=== PATIENT | female | born 1995 ===

== ENCOUNTER 2020-08-10 13:05 | Inpatient (IN) | payer SELFPAY ==
[2020-08-10 13:10] VITALS: BP 125/83; PULSE 79; RESP 18; TEMP 37; O2SAT 99; BMI 23.4
--- NOTE | 2020-08-10 13:15 | ECG_ITS ---
[facility] Test Date: 2020-08-10 Pat Name: Nika Jorge Department: Room: Gender: Female Shot Fireman: : 1995 Requested By: Garett Gerardo Order Number: [id number] Lawanda MD: Jay Davis M.D. Measurements Intervals [place] Rate: 89 P: 68 TX: 137 QRS: 81 QRSD: 84 T: 51 QT: 357 QTc: 435 Interpretive Statements SINUS RHYTHM No previous ECG available for comparison Electronically Signed On 08-11-2020 19:18:09 PRODUCTION CONTROL EXPEDITER by Jay Davis M.D. [id number]
[2020-08-10 13:19] VITALS: BP 125/83; PULSE 79; RESP 18; O2SAT 99
[2020-08-10] MEDS: OLANZapine 10 mg TABLET PO (13:42)
[2020-08-10 14:01] LABS: HCG Qualitative Urine. Negative (Negative)
[2020-08-10 14:08] LABS: Add Urine Microscopic? YES; Basophils # 0.1 10^3/uL (0.0-0.1); Basophils % 0.7 %; Bilirubin Urine Neg (Negative); Blood Urine 2+ (Negative); Eosinophils % 0.4 %; Glucose Urine UA Norm (Normal); Hematocrit 41.1 % (37.0-47.0); Hemoglobin 13.3 g/dL (11.5-15.3); Ketones Urine Negative (Negative); Leukocyte Esterase Urine Trace (Negative); Lymphocytes # 2.1 10^3/uL (0.8-4.8); Lymphocytes % 27.5 %; Mean Corpuscular HGB Conc 32.4 g/dL (30.0-36.0); Mean Corpuscular Hemoglobin 30.6 pg (28.0-34.0); Mean Corpuscular Volume 94.7 fL (81-99); Mean Platelet Volume 9.8 fL (7.4-10.4); Monocytes # 0.5 10^3/uL (0.2-0.9); Monocytes % 6.9 %; Neutrophils # 4.84 10^3/uL (1.8-7.7); Neutrophils % 63.5 %; Nitrate Urine Negative (Negative); Nucleated Red Blood Cells % 0 %; Platelet Count 377 10^3/cmm (130-400); Protein Urine Neg (Negative); Red Blood Count 4.34 10^6/uL (4.1-5.3); Red Cell Distribution Width 13.7 % (12.1-15.1); Urine Appearance Cloudy (CLEAR); Urine Color Yellow (Yellow); Urobilinogen Urine Norm (Negative); White Blood Count 7.6 10^3/uL (4.0-10.0); pH Urine 5 (5-7)
[2020-08-10 14:09] LABS: Amphetamines Screen Urine Negative (Negative); Barbiturates Screen Urine Negative (Negative); Benzodiazepines Screen Urine Negative (Negative); Cocaine Screen Urine Negative (Negative); Opiate Screen Urine Negative (Negative); PCP Screen Urine Negative (Negative); THC Screen Urine Negative (Negative)
[2020-08-10 14:20] LABS: WBC Urine >100 /hpf (0-5)
[2020-08-10 14:21] LABS: Add Urine Culture? No; Bacteria Urine 4+ /hpf; Squamous Epithelial Cell Urine 40-55 /hpf (0-5)
[2020-08-10 14:23] LABS: Alanine Aminotransferase 57 U/L (0-33); Alkaline Phosphatase 80 IU/L (35-105); Anion Gap 13.6 (5-19); Aspartate Amino Transferase 17 U/L (0-32); Blood Urea Nitrogen 13 mg/dL (6-20); Calcium 9.7 mg/dL (8.5-10.5); Carbon Dioxide 29 mmol/L (22-29); Chloride 101 mmol/L (98-107); Globulin 3.6 g/dL (1.3-4.6); Glomerular Filtration Rate 149.1 mL/min (90-130); Glucose 67 mg/dL (65-115); Osmolality Calculated 288 mOsm/kg (285-295); Potassium 3.6 mmol/L (3.5-5.1); Sodium 140 mmol/L (136-145); Total Bilirubin 0.4 mg/dL (0.15-1.2); Total Protein 8.6 g/dL (6.6-8.7)
[2020-08-10 14:26] LABS: Acetaminophen < 5.0 ug/mL (10-30); Alcohol Level < 10 mg/dL (0-10); Salicylate < 0.3 mg/dL (3-10)
--- NOTE | 2020-08-10 14:38 | PC.NURSE ---
changed patient into a patient gown and paper scrub pants.
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
[2020-08-10 15:41] VITALS: BP 120/85; PULSE 81; RESP 16; O2SAT 98
[2020-08-10 16:18] VITALS: BP 111/80; PULSE 73; RESP 18; TEMP 36.2; O2SAT 99
[2020-08-10] MEDS: ciprofloxacin 500 mg Tablet PO (19:28)
[2020-08-10 20:02] VITALS: BP 102/55; PULSE 89; RESP 16; TEMP 36.8; O2SAT 98
[2020-08-10] MEDS: hyDROXYzine 25 mg Capsule 50 MG PO (20:30)
[2020-08-10] MEDS: trazodone 50 mg Tablet PO (20:30)
[2020-08-11 06:00] VITALS: BP 102/63; PULSE 77; RESP 15; TEMP 36.8; O2SAT 97
[2020-08-11 08:03] LABS: Add Urine Culture? No; Bacteria Urine 1+ /hpf; Bilirubin Urine Neg (Negative); Blood Urine Neg (Negative); Glucose Urine UA Norm (Normal); Ketones Urine Negative (Negative); Leukocyte Esterase Urine Negative (Negative); Nitrate Urine Negative (Negative); Protein Urine Neg (Negative); Squamous Epithelial Cell Urine 15-25 /hpf (0-5); Urine Appearance Clear (CLEAR); Urine Color Yellow (Yellow); Urobilinogen Urine Norm (Negative); WBC Urine 0-4 /hpf (0-5); pH Urine 6 (5-7)
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
[2020-08-11] MEDS: citalopram 20 mg Tablet 10 MG PO (11:21)
[2020-08-11 14:00] VITALS: BP 117/79; PULSE 84; RESP 14; TEMP 36.9; O2SAT 96
[2020-08-11] MEDS: OLANZapine 5 mg TABLET 2.5 MG PO (17:34)
[2020-08-11 21:34] VITALS: BP 142/99; PULSE 76; RESP 18; TEMP 37; O2SAT 98
[2020-08-11] MEDS: hyDROXYzine 25 mg Capsule 50 MG PO (21:36)
[2020-08-11] MEDS: trazodone 50 mg Tablet PO (21:37)
[2020-08-12 06:00] VITALS: BP 113/77; PULSE 72; RESP 17; TEMP 36.8; O2SAT 97
[2020-08-12] MEDS: OLANZapine 5 mg TABLET 2.5 MG PO ×2 (07:40→20:10)
[2020-08-12] MEDS: citalopram 20 mg Tablet 10 MG PO (07:40)
[2020-08-12 14:00] VITALS: BP 125/82; PULSE 85; RESP 18; TEMP 36.9; O2SAT 97
--- NOTE | 2020-08-12 14:18 | P.PN_ITS ---
Subjective NPU Subjective: Interval history: Reports intermittent depressive symptoms, intermittent PTSD symptoms, states she had problems with nightmares last night with difficulty sleeping. Continues to make some unusual statements, states that she has been wanting to run away for a long time but does not elaborate. Becomes tearful and unable to continue interview. Mental Status Exam MSE Comments: Sitting on her bed, appropriately groomed and dressed, calm, cooperative, good eye contact Psychomotor activity is neither increased nor decreased, no agitation Speech is normal volume, normal rate, spontaneous, clear articulation, not pressured I feel a little down, full range, occasionally tearful, not labile Alert and oriented to person, place, time, situation Memory and concentration appear to be fair to intact per interview Thought process, circumstantial at times, no flight of ideas, no looseness of associations Thought content, no delusions, no hallucinations, no suicidal ideation, no homicidal ideation Insight and judgment appear to be fair Vitals/I&O/Wt Last Vital Signs Temp 98.2 F 08/12/20 06:00 Pulse 72 08/12/20 06:00 Resp 17 08/12/20 06:00 BP 113/77 08/12/20 06:00 Pulse Ox 97 08/12/20 06:00 Weight last 48 hrs Weight 54.431 kg Data NPU : 08/10/20 13:50 08/10/20 13:50 A&P Assessment and plan (1) Chronic schizophrenia: Status: Acute (2) PTSD (post-traumatic stress disorder): Status: Acute Additional A&P Information Continues to be somewhat odd and elusive but reports intermittent PTSD symptoms, depressive symptoms, denies any suicidal ideation START prazosin 1 mg at bedtime targeting nightmares CONTINUE other current medication, continue to monitor Involuntary Hold Information 96 Hour Hold: 96 Hour Involuntary Admission: No Attestations NPU Medical Necessity Statement*: Continues require psychiatric hospitalization for medication stabilization Coding Level of Care Code Acute Mems Process Engineer for Paulino Menard Diagnoses Chronic schizophrenia F20.9 PTSD (post-traumatic stress disorder) F43.10
[2020-08-12 19:57] VITALS: BP 126/84; PULSE 74; RESP 19; TEMP 36.6; O2SAT 100
[2020-08-12] MEDS: prazosin 1 mg Capsule PO (20:10)
[2020-08-13 06:00] VITALS: BP 120/81; PULSE 87; RESP 15; TEMP 36.6; O2SAT 100
[2020-08-13] MEDS: OLANZapine 5 mg TABLET 2.5 MG PO (08:00)
[2020-08-13] MEDS: citalopram 20 mg Tablet 10 MG PO (08:00)
[2020-08-13] MEDS: nicotine 21 mg Patch 1 PATCH TRANSDERMA (10:45)
[2020-08-13] MEDS: hyDROXYzine 25 mg Capsule 50 MG PO ×2 (10:45→20:12)
[2020-08-13] MEDS: OLANZapine 5 mg TABLET PO ×2 (11:45→20:12)
--- NOTE | 2020-08-13 12:46 | PM.NPN ---
Subjective NPU Subjective: Interval history: Patient is emotionally labile during interview, tearful, crying Continues to make nonsensical statements about running away but does not provide details or clarification Continues to be confused about where she was going or what she is doing but states that she is supposed be meeting up with her boyfriend somewhere Denies any auditory or visual hallucinations Reports some depressive symptoms, denies any suicidal ideation Does not provide any clear responses about any interval trauma related symptoms, denies any nightmares last evening Reports being compliant with medication and denies any medication side effects Mental Status Exam MSE Comments: Tearful, appropriately groomed and dressed, standing and pacing around the room, fair eye contact Psychomotor activity, somewhat restless, no agitation Speech is normal rate and volume, spontaneous, clear articulation, not pressured I feel upset, congruent affect, tearful, labile Alert and oriented to person, type of place Memory and concentration are poor to fair at best per interview Thought process, circumstantial, occasional loose associations, tangential Thought content, some delusions, does not appear to be attending to any internal stimuli, no suicidal homicidal ideation Insight and judgment appear to be fair Vitals/I&O/Wt Last Vital Signs Temp 97.8 F 08/13/20 06:00 Pulse 87 08/13/20 06:00 Resp 15 08/13/20 06:00 BP 120/81 08/13/20 06:00 Pulse Ox 100 08/13/20 06:00 Weight last 48 hrs Weight 54.431 kg Data NPU : 08/10/20 13:50 08/10/20 13:50 A&P Assessment and plan (1) Chronic schizophrenia: Status: Acute (2) PTSD (post-traumatic stress disorder): Status: Acute Additional A&P Information Continues to be confused, emotionally labile, tearful, does not provide many direct answers but is agreeable to try to get her fianc? to call the unit to provide collateral INCREASE to olanzapine 5 mg twice daily targeting mood, psychotic symptoms CONTINUE other medications, continue to monitor Involuntary Hold Information 96 Hour Hold: 96 Hour Involuntary Admission: No Attestations NPU Medical Necessity Statement*: Continues require psychiatric hospitalization for medication stabilization as well as ensuring safe discharge including psychiatric follow-up Coding Level of Care Code Acute Paper Wrapping Machine Operator for Paulino Menard Diagnoses Chronic schizophrenia F20.9 PTSD (post-traumatic stress disorder) F43.10
[2020-08-13 14:00] VITALS: BP 134/79; PULSE 102; RESP 20; TEMP 36.3; O2SAT 94
[2020-08-13] MEDS: prazosin 1 mg Capsule PO (20:12)
[2020-08-13 20:47] VITALS: BP 153/105; PULSE 77; RESP 18; TEMP 36.9; O2SAT 99
[2020-08-14 06:00] VITALS: BP 137/87; PULSE 104; RESP 18; TEMP 36.5; O2SAT 99
[2020-08-14] MEDS: OLANZapine 5 mg TABLET PO (08:05)
[2020-08-14] MEDS: citalopram 20 mg Tablet 10 MG PO (08:05)
--- NOTE | 2020-08-14 10:36 | P.PN_ITS ---
Subjective NPU Subjective: Interval history: Patient is intermittently sobbing, states that she does not want to talk to her mom because she does not care about her. Patient continues to have little insight into circumstances leading to her hospitalization or how she got to this town. Patient states that she feels a little bit better despite her labile mood and affect. Denies any interval auditory or visual destinations. Reports being compliant with her medication, denies any medication side effects Collateral information provided to socially responsible investment adviser indicates that patient had been traveling from [place] to look for work but had turned off a navigating officer on her social media and had evidently been driving in circles prior to being arrested and having her car impounded out of state and being picked up by police near this facility when she was seen trying to get into another vehicle. Mental Status Exam MSE Comments: Appropriately groomed and dressed, pacing in her room, sobbing, fair eye contact Psychomotor activity, somewhat restless, no agitation Speech is normal rate and volume, spontaneous, clear articulation, not pressured I am mad, congruent affect, tearful, labile Alert and oriented to person, type of place Memory and concentration are poor to fair at best per interview Thought process, circumstantial, occasional loose associations, tangential Thought content, some delusions, does not appear to be attending to any internal stimuli, no suicidal homicidal ideation Insight and judgment appear to be fair Vitals/I&O/Wt Last Vital Signs Temp 97.7 F 08/14/20 06:00 Pulse 104 H 08/14/20 06:00 Resp 18 08/14/20 06:00 BP 137/87 08/14/20 06:00 Pulse Ox 99 08/14/20 06:00 Data NPU : 08/10/20 13:50 08/10/20 13:50 A&P Assessment and plan (1) Chronic schizophrenia: Status: Acute (2) PTSD (post-traumatic stress disorder): Status: Acute Additional A&P Information Collateral information provided substantiating impulsive actions concerning for her safety, potential harm to herself and others. Continues to demonstrate labile mood and affect and confusion about circumstances leading to her hospitalization as well as delusions. INCREASE to olanzapine 5 mg daily, 10 mg at bedtime CONTINUE other medication, continue to monitor START 96-hour hold Involuntary Hold Information 96 Hour Hold: 96 Hour Involuntary Admission: No Attestations NPU Medical Necessity Statement*: Continues require psychiatric hospitalization for medication stabilization, concerns about safety to self given ongoing delusions, impulsive behavior Coding Level of Care Code Acute Graphic Pre Press Trades Worker for g Fwd Diagnoses Chronic schizophrenia F20.9 PTSD (post-traumatic stress disorder) F43.10
[2020-08-14 13:45] VITALS: BP 125/81; PULSE 95; RESP 16; TEMP 37.2; O2SAT 98
[2020-08-14] MEDS: hyDROXYzine 25 mg Capsule 50 MG PO (17:47)
--- NOTE | 2020-08-14 17:48 | PC.NURSE ---
PRN VISTARIL 50 MG GIVEN PO PER PT C/O STATED ANXIETY. PT PACING UNIT, GETTING VERBALLY AGGRESSIVE WITH MARIO RIVERS, CALLING HER A FUCKING BITCH
[2020-08-14 20:37] VITALS: BP 129/91; PULSE 97; RESP 19; TEMP 36.9; O2SAT 96
[2020-08-14] MEDS: prazosin 1 mg Capsule PO (21:00)
[2020-08-14] MEDS: OLANZapine 10 mg TABLET PO (21:00)
--- NOTE | 2020-08-14 23:29 | PC.NURSE ---
PM ASSESSMENT PT DENIES PAIN, DENIES AH/VH, DENIES SI/HI. PATIENT TOLD NURSING STAFF THAT SHE DON'T KNOW HOW SHE GOT HERE BUT SHE IS FROM THE [place] OF [place]. PT V/S ARE WNL. HEART AND LUNG SOUNDS ARE CLEAR AND WNL. PT HAS PACED THE HALLWAY AND REGARDLESS OF STAFF'S REDIRECTION ENTERED SEVERAL PATIENT ROOMS. PT SEEMS LOST. STAFF ATTEMPTED TO REDIRECT PATIENT BEHAVIOR WITH A BOOK, VERBAL REQUESTS, AND PEDAL ASSEMBLER INTERVENTION. WILL CONTINUE TO MONITOR PT.
[2020-08-15 06:00] VITALS: RESP 19
[2020-08-15] MEDS: nicotine 2 mg Gum BUCCAL ×2 (07:57→17:46)
[2020-08-15] MEDS: citalopram 20 mg Tablet 10 MG PO (08:31)
[2020-08-15] MEDS: OLANZapine 5 mg TABLET PO (08:31)
--- NOTE | 2020-08-15 12:25 | PM.NPN ---
Subjective NPU Subjective: Interval history: Patient able to participate in a more organized manner, answering more questions, states that she had been driving to [place] and had become confused and admits to being picked up by police in a vehicle that was not hers. She reports that her battery had in her vehicle but does not recall many other details. Patient begins to sob some when she states that she does not want to go back to [place] because of family issues that she does not want to get into detail about. Reports intermittent low mood symptoms, denies any interval suicidal ideation or thoughts about self-harm Denies any auditory or visual destinations. Per staff report, observed to be smiling inappropriately at times and continues to act in a somewhat odd manner She reports being compliant with her medication and denies any medication side effects. Reports improved sleep, appetite Mental Status Exam MSE Comments: Sitting in the day room, appropriately groomed and dressed, calm, cooperative, good eye contact Psychomotor activity, neither increased nor decreased, no agitation Speech is normal rate and volume, spontaneous, clear articulation, not pressured I am okay, congruent affect, occasionally tearful, labile Alert and oriented to person, type of place Memory and concentration are fair at best per interview Thought process, circumstantial, occasional loose associations, tangential Thought content, some overvalued ideas, no stated delusions, no hallucinations, no suicidal homicidal ideation Insight and judgment appear to be fair Vitals/I&O/Wt Last Vital Signs Temp 98.4 F 08/14/20 20:37 Pulse 97 08/14/20 20:37 Resp 19 H 08/15/20 06:00 BP 129/91 08/14/20 20:37 Pulse Ox 96 08/14/20 20:37 Data NPU : 08/10/20 13:50 08/10/20 13:50 A&P Assessment and plan (1) Chronic schizophrenia: Status: Acute (2) PTSD (post-traumatic stress disorder): Status: Acute Additional A&P Information Continues to act in a somewhat odd, bizarre manner, smiles inappropriately at times, intermittently sobbing, reports family stressors, reports being confused during her trip in which she had ended up in a vehicle that was not hers. INCREASE to olanzapine 10 mg twice daily CONTINUE other medication, continue to monitor Awaiting outpatient records from [place] Involuntary Hold Information 96 Hour Hold: 96 Hour Involuntary Admission: No Attestations NPU Medical Necessity Statement*: Continues to require psychiatric hospitalization for medication stabilization as well as safe discharge including coordination for outpatient psychiatric follow-up Coding Level of Care Code Acute Color Expert for [facility] Fwd Diagnoses Chronic schizophrenia F20.9 PTSD (post-traumatic stress disorder) F43.10
[2020-08-15] MEDS: nicotine 21 mg Patch 1 PATCH TRANSDERMA (13:40)
[2020-08-15 14:00] VITALS: BP 120/74; PULSE 101; RESP 20; TEMP 36.7; O2SAT 97
[2020-08-15 19:47] VITALS: BP 140/94; PULSE 94; RESP 17; TEMP 36.7; O2SAT 98
[2020-08-15] MEDS: hyDROXYzine 25 mg Capsule 50 MG PO (20:15)
[2020-08-15] MEDS: OLANZapine 10 mg TABLET PO (20:15)
[2020-08-15] MEDS: prazosin 1 mg Capsule PO (20:15)
--- NOTE | 2020-08-15 22:36 | PC.NURSE ---
PM assessment Pt is calm/cooperative, however, she has been intrusive into other patient rooms requiring redirection often, and limits to her walking down the hallway. Pt denies pain, denies AH/VH, Denies SI/HI. Pt often laughs at inappropriate things and seems to overly enjoy male company on the unit. This patient requires constant monitoring. Pt is confused at times, often forgetful of recent events, walking away, returning to the desk to ask for the same item she just received. Pt v/s are WNL, Heart/Lung sounds are normal. will continue to monitor.
[2020-08-16] MEDS: OLANZapine 5 mg ODT PO (00:15)
--- NOTE | 2020-08-16 00:16 | PC.NURSE ---
Patient unable to rest, Anxious and getting agitated in her psychotic state. Zyprexa zidus 5mg given PO.
[2020-08-16 06:00] VITALS: BP 139/95; PULSE 112; RESP 16; TEMP 36.2; O2SAT 98
[2020-08-16] MEDS: OLANZapine 10 mg TABLET PO ×2 (08:10→20:28)
[2020-08-16] MEDS: citalopram 20 mg Tablet 10 MG PO (08:10)
--- NOTE | 2020-08-16 12:57 | P.PN_ITS ---
Subjective NPU Subjective: Interval history: Continues to report intermittent depressive symptoms, denies any suicidal ideation Continues to report occasional tearful episodes Denies any elevated or expansive mood states. Per nurse report, patient was having episodes of laughing inappropriately and following a patient on the unit laughing inappropriately. She denies any auditory or visual hallucinations, no stated delusions Reports being compliant with medication and denies any medication side effects Reports that her appetite has been good and that her sleep is improved Mental Status Exam MSE Comments: Sitting on her bed, appropriately groomed and dressed, polite, interactive, good eye contact Psychomotor activity, neither increased nor decreased, no agitation Speech is normal rate and volume, spontaneous, clear articulation, not pressured I feel sad, congruent affect, occasionally tearful, labile Alert and oriented to person, type of place Memory and concentration are fair at best per interview Thought process, circumstantial, requires frequent redirection l Thought content, some overvalued ideas, no stated delusions, no hallucinations, no suicidal homicidal ideation Insight and judgment appear to be fair Vitals/I&O/Wt Last Vital Signs Temp 97.1 F L 08/16/20 06:00 Pulse 112 H 08/16/20 06:00 Resp 16 08/16/20 06:00 BP 139/95 08/16/20 06:00 Pulse Ox 98 08/16/20 06:00 Data NPU : 08/10/20 13:50 08/10/20 13:50 A&P Assessment and plan (1) Chronic schizophrenia: Status: Acute (2) PTSD (post-traumatic stress disorder): Status: Acute Additional A&P Information Continues to report depressive symptoms, tearful episodes, observed laughing inappropriately on the unit INCREASE to citalopram 20 mg daily CONTINUE Zyprexa 10 mg twice daily Involuntary Hold Information 96 Hour Hold: 96 Hour Involuntary Admission: No Attestations NPU Medical Necessity Statement*: Continues require psychiatric hospitalization for medication stabilization as well as coordination for safe discharge Coding Level of Care Code Acute Hydro Electric Station Operator for Paulino Menard Diagnoses Chronic schizophrenia F20.9 PTSD (post-traumatic stress disorder) F43.10
[2020-08-16 14:00] VITALS: BP 116/74; PULSE 100; RESP 18; TEMP 36.9; O2SAT 98
[2020-08-16] MEDS: prazosin 1 mg Capsule PO (20:28)
[2020-08-16] MEDS: hyDROXYzine 25 mg Capsule 50 MG PO (20:28)
[2020-08-16 22:00] VITALS: BP 128/80; PULSE 107; RESP 16; TEMP 37.1; O2SAT 98
[2020-08-17 06:00] VITALS: BP 112/76; PULSE 84; RESP 17; TEMP 36.5; O2SAT 96
[2020-08-17] MEDS: citalopram 20 mg Tablet PO (07:02)
[2020-08-17] MEDS: OLANZapine 10 mg TABLET PO ×2 (07:02→20:31)
[2020-08-17] MEDS: nicotine 2 mg Gum BUCCAL (07:04)
--- NOTE | 2020-08-17 09:44 | P.PN_ITS ---
Subjective NPU Subjective: Interval history: States that she slept well, reports good appetite. Denies any interval auditory or visual destinations. Denies any delusions Denies any interval mood symptoms and denies any interval tearful episodes, denies any depressed symptoms, denies any suicidal ideation or thoughts about self-harm Denies any interval trauma related symptoms, no nightmares Reports being compliant with her medication and denies any medication side effects Mental Status Exam MSE Comments: Lying in bed, calm and cooperative, good eye contact Psychomotor activity, neither increased nor decreased, no agitation Speech is normal rate and volume, spontaneous, clear articulation, not pressured I feel better, congruent affect, not labile Alert and oriented to person, type of place Memory and concentration are fair at best per interview Thought process, circumstantial, requires frequent redirection l Thought content, no stated delusions, no hallucinations, no suicidal homicidal i deation Insight and judgment appear to be fair Vitals/I&O/Wt Last Vital Signs Temp 97.7 F 08/17/20 06:00 Pulse 84 08/17/20 06:00 Resp 17 08/17/20 06:00 BP 112/76 08/17/20 06:00 Pulse Ox 96 08/17/20 06:00 Data NPU : 08/10/20 13:50 08/10/20 13:50 A&P Assessment and plan (1) Chronic schizophrenia: Status: Acute (2) PTSD (post-traumatic stress disorder): Status: Acute Additional A&P Information Reports improving mood, denies any interval psychotic symptoms, tolerating medication well CONTINUE current medication, continue to monitor Involuntary Hold Information 96 Hour Hold: 96 Hour Involuntary Admission: No Attestations NPU Medical Necessity Statement*: Continues require psychiatric hospitalization for medication stabilization Coding Level of Care Code Acute Nursing Home Social Worker for Paulino Menard Diagnoses Chronic schizophrenia F20.9 PTSD (post-traumatic stress disorder) F43.10
[2020-08-17 14:00] VITALS: BP 118/72; PULSE 80; RESP 18; TEMP 36.8; O2SAT 97
[2020-08-17 20:08] VITALS: BP 133/87; PULSE 91; RESP 18; TEMP 36.9; O2SAT 96
[2020-08-17] MEDS: prazosin 1 mg Capsule PO (20:31)
[2020-08-17] MEDS: hyDROXYzine 25 mg Capsule 50 MG PO (20:31)
[2020-08-17] MEDS: trazodone 50 mg Tablet PO (20:32)
--- NOTE | 2020-08-17 21:17 | PC.NURSE ---
PM ASSESSMENT V/S: T 98.5, AL 91, RR 18, B/P 133/87 SITTING, O2 IS 96% ON RA. PT DENIES PAIN, DENIES AH/VH, DENIES SI/HI. PT IS CALM AND COOPERATIVE WITH STAFF. PT STATES, IM BORED OFFERED ACTIVITY PAGES, TV REMOTE, AND A BOOK TO READ. PT HAS HAD A VERY LARGE APPETITE, CONSTANTLY WANTS TO SNACK, REQUIRES CONSTANT REDIRECTION, LIMITS OF BEHAVIOR AND PERSONAL DISTANCE ARE AN ISSUE FOR THIS PT. MOOD IS GOOD, OFTEN TELLS STAFF, I MISSED YOU OR I LOVE YOU SMILING AND PACING MOST OF THE EVENING. PT HAS ESTABLISHED A KINSHIP WITH OTHER PATIENT AND IS LEARNING TO AVOID THOSE THAT DO NOT LIKE TO BE DISTURBED. SEEMS THAT SHE IS LEARNING HOW TO RESPOND TO SOCIAL CUES.
[2020-08-18 06:00] VITALS: BP 122/76; PULSE 76; RESP 17; TEMP 36.6; O2SAT 97
[2020-08-18] MEDS: OLANZapine 10 mg TABLET PO ×2 (08:28→19:51)
[2020-08-18] MEDS: citalopram 20 mg Tablet PO (08:28)
--- NOTE | 2020-08-18 11:38 | P.PN_ITS ---
Subjective NPU Subjective: Interval history: Continues to report improving mood, denies any interval episodes Denies any interval depressive symptoms, denies any suicidal ideation Denies any interval psychotic symptoms Denies any interval manic symptoms Per staff, no observed elevated or expansive mood states, no interval behavioral disturbances Continues to be compliant with medication, denies any medication side effects Mental Status Exam MSE Comments: Standing in hallway, blanket wrapped on shoulders, polite, interactive, good eye contact Psychomotor activity, neither increased nor decreased, no agitation Speech is normal rate and volume, spontaneous, clear articulation, not pressured I feel okay, congruent affect, not labile Alert and oriented to person, type of place Memory and concentration are fair at best per interview Thought process, linear, no flight of ideas, no looseness of associations Thought content, no stated delusions, no hallucinations, no suicidal homicidal ideation Insight and judgment appear to be fair Vitals/I&O/Wt Last Vital Signs Temp 97.9 F 08/18/20 06:00 Pulse 76 08/18/20 06:00 Resp 17 08/18/20 06:00 BP 122/76 08/18/20 06:00 Pulse Ox 97 08/18/20 06:00 Data NPU : 08/10/20 13:50 08/10/20 13:50 A&P Assessment and plan (1) Chronic schizophrenia: Status: Acute (2) PTSD (post-traumatic stress disorder): Status: Acute Additional A&P Information Continues to demonstrate improved mood CONTINUE current medication, continue to monitor Involuntary Hold Information 96 Hour Hold: 96 Hour Involuntary Admission: No Attestations NPU Medical Necessity Statement*: Patient continues require psychiatric hospitalization for medication stabilization, coordination for safe discharge to include post discharge psychiatric care Coding Level of Care Code Acute Site Physician for Paulino Menard Diagnoses Chronic schizophrenia F20.9 PTSD (post-traumatic stress disorder) F43.10
[2020-08-18 13:53] VITALS: BP 120/76; PULSE 112; RESP 18; TEMP 36.8
[2020-08-18] MEDS: nicotine 2 mg Gum BUCCAL (19:25)
[2020-08-18] MEDS: hyDROXYzine 25 mg Capsule 50 MG PO (19:50)
[2020-08-18] MEDS: trazodone 50 mg Tablet PO (19:51)
[2020-08-18] MEDS: prazosin 1 mg Capsule PO (19:51)
[2020-08-18 22:00] VITALS: BP 125/83; PULSE 101; RESP 16; TEMP 37.2; O2SAT 97
[2020-08-19 02:00] VITALS: BP 123/76; PULSE 112; RESP 16; TEMP 37.1; O2SAT 97
[2020-08-19 02:39] VITALS: BMI 23.4
[2020-08-19 06:00] VITALS: BP 128/86; PULSE 82; RESP 20; TEMP 37.4; O2SAT 98
[2020-08-19] MEDS: OLANZapine 10 mg TABLET PO ×2 (08:39→20:47)
[2020-08-19] MEDS: citalopram 20 mg Tablet PO (08:39)
[2020-08-19] MEDS: nicotine 2 mg Gum BUCCAL ×2 (09:21→13:45)
--- NOTE | 2020-08-19 10:23 | PM.NPN ---
Subjective NPU Subjective: Interval history: Denies any interval mood symptoms, denies any depressive symptoms, denies any tearful episodes, denies any suicidal ideation Denies any auditory or visual hallucinations, denies any delusions Patient states that she is planning to purchase an airplane ticket with her debit card to go to [place] when she discharges Continues to be compliant with medication, denies any medication side effects No reported interval behavioral disturbances Mental Status Exam MSE Comments: Sitting in the day room, calm, cooperative, good eye contact Psychomotor activity, neither increased nor decreased, no agitation Speech is normal rate and volume, spontaneous, clear articulation, not pressured Good, congruent affect, smiles appropriately at times during interview, not labile Alert and oriented to person, type of place Memory and concentration are fair at best per interview Thought process, linear, no flight of ideas, no looseness of associations Thought content, no stated delusions, no hallucinations, no suicidal homicidal ideation Insight and judgment appear to be fair Vitals/I&O/Wt Last Vital Signs Temp 99.3 F 08/19/20 06:00 Pulse 82 08/19/20 06:00 Resp 20 H 08/19/20 06:00 BP 128/86 08/19/20 06:00 Pulse Ox 98 08/19/20 06:00 Weight last 48 hrs Weight 54.431 kg Data NPU : 08/10/20 13:50 08/10/20 13:50 A&P Assessment and plan (1) Chronic schizophrenia: Status: Acute (2) PTSD (post-traumatic stress disorder): Status: Acute Additional A&P Information Continues to deny any interval trauma related symptoms, denies any interval depressive symptoms or manic symptoms, no observed erratic or impulsive behavior, continues to be compliant with medication with no reported side effects and appears to be more organized in her thoughts. CONTINUE current medication, continue to monitor Involuntary Hold Information 96 Hour Hold: 96 Hour Involuntary Admission: No Attestations NPU Medical Necessity Statement*: Continues to require psychiatric hospitalization for medication stabilization, coordination for safe discharge Coding Level of Care Code Acute Barrel Assembler Helper for Paulino Menard Diagnoses Chronic schizophrenia F20.9 PTSD (post-traumatic stress disorder) F43.10
[2020-08-19 13:04] VITALS: BP 102/66; PULSE 64; RESP 18; TEMP 36.8
[2020-08-19] MEDS: acetaminophen 325 mg Tablet 650 MG PO (15:58)
[2020-08-19] MEDS: hyDROXYzine 25 mg Capsule 50 MG PO (15:58)
--- NOTE | 2020-08-19 16:00 | PC.NURSE ---
PRN VISTARIL ADMINISTERED VISTARIL 50 MG PO FOR PT C/O OF INCREASING ANXIETY. WILL MONITOR FOR MEDICATION EFFECTIVENESS.
[2020-08-19 20:02] VITALS: BP 127/78; PULSE 104; RESP 20; TEMP 37.3; O2SAT 95
[2020-08-19] MEDS: prazosin 1 mg Capsule PO (20:47)
[2020-08-19] MEDS: trazodone 50 mg Tablet PO (20:47)
[2020-08-20 06:00] VITALS: BP 99/63; PULSE 92; RESP 17; TEMP 36.9; O2SAT 97
[2020-08-20] MEDS: OLANZapine 10 mg TABLET PO (07:39)
[2020-08-20] MEDS: citalopram 20 mg Tablet PO (07:39)
[2020-08-20] MEDS: nicotine 2 mg Gum BUCCAL (07:39)
--- NOTE | 2020-08-20 09:27 | PM.NDC ---
Diagnoses at Discharge Discharge Diagnosis (1) Chronic schizophrenia: Status: Acute (2) PTSD (post-traumatic stress disorder): Status: Acute Reason for Visit Reason for Visit: CONFUSED/ DISORIENTED Hospital Course Hospital Course 25-year-old female with unclear past psychiatric history although reported history of schizophrenia and bipolar disorder presented to the emergency department by police on 96-hour hold secondary to being found trying to get into a vehicle that was not hers. Patient had apparently traveled across a couple of states initially in her own vehicle and then subsequently getting into another vehicle prior to being hospitalized. Patient was confused with bizarre behavior but did not appear to be pressured although smiling and appropriately during initial evaluation. Patient had significant delusions and believed that her ex-boyfriend had been following her to [place] to meet up with her but subsequently able to corroborate from collateral from the patient's ex-boyfriend that he had not been with her for a couple of months and that other hospitals had called him with the same delusional statement from the patient. Patient's mother was also contacted; she stated that the patient been off her medication for several weeks and had left looking for work prior to being lost to contact. Patient was started on olanzapine which was titrated up to olanzapine 10 mg twice daily targeting her psychotic symptoms which included delusions, disorganized behaviors and thoughts. Patient was also reporting significant depressive symptoms and reported past trauma and trauma related symptoms and was started on citalopram which was titrated up to citalopram 20 mg daily with good effect. Patient had also initially reported some nightmares which she reports occurs on a fairly regular basis and was started on prazosin 1 mg at bedtime which she also tolerated well. Patient denied any side effects from any of her medications and tolerated these medications well. Patient reconstituted over several days with more organized speech and behavior and thoughts. Patient also reported improvement in her mood and denied any subsequent trauma related symptoms. Patient participated in unit milieu with no reports of any behavioral disturbances. Patient continued to communicate her desire not to return to [place] and reported having family in [place] and coordinated for travel post discharge to [place] to be with family. Patient was not suicidal or psychotic at the time of discharge and did not appear to pose an imminent threat of harm to self or others. Low to moderate risk of harm to self or others given no current suicidal ideation and no current psychotic symptoms or mood symptoms although patient's risk may be elevated if she continues to be noncompliant with her medication or medication management follow-up or is using substances or alcohol leading to unexpected, impulsive behavior. Risk mitigation included psychiatric hospitalization, observation, medication stabilization as well as coordination for safe discharge. Patient was able to communicate her understanding of the need to abstain from the use of any substances or alcohol as well as the need for compliance with her medication, medication management and therapy follow-up in order to further mitigate her risk of harm to self or others. Involuntary Hold Information 96 Hour Hold: 96 Hour Involuntary Admission: No Mental Status Exam MSE Comments: Sitting on her bed, polite, interactive, good eye contact Psychomotor activity, neither increased nor decreased, no agitation Speech is normal rate and volume, spontaneous, clear articulation, not pressured I feel good, congruent affect, not labile Alert and oriented to person, type of place Memory and concentration are fair to intact per interview Thought process, linear, no flight of ideas, no looseness of associations Thought content, no stated delusions, no hallucinations, no suicidal homicidal ideation Insight and judgment appear to be fair Discharge Data Vitals: Last Vital Signs Temp 98.4 F 08/20/20 06:00 Pulse 92 08/20/20 06:00 Resp 17 08/20/20 06:00 BP 99/63 08/20/20 06:00 Pulse Ox 97 08/20/20 06:00 Discharge Plan Discharge Patient Disposition: Home Condition: Stable Prescriptions: New prazosin 1 mg Capsule 1 mg PO BEDTIME Qty: 30 RF: 0 olanzapine 10 mg Tablet 10 mg PO 0900,2100 Qty: 60 RF: 0 citalopram 20 mg Tablet 20 mg PO DAILY Qty: 30 RF: 0 Continued melatonin 1 - 2 tab PO BEDTIME PRN (Reason: Sleep) RF: 0 Discontinued Zyprexa See Rx Instructions .ROUTE .COMPLEX RF: 0 Discharge Orders: Discharge Order (Routine); Ordered 08/20/20 Ordered By: Jose Rosario Referrals: Behavioral Health ([facility]) [Other] Discharge Diet: Regular Discharge Activity: Resume usual activity Discharge Attestations NPU Time Spent in Discharge Care*: greater than 30 min Status at Discharge: Cognitive status at discharge: cognitively intact, Behavioral status at discharge: cooperative, Functional status at discharge: independent ambulation Overall status at discharge: patient is back to baseline Coding Level of Care Code Acute Commercial Lines Assistant for Paulino Menard Diagnoses Chronic schizophrenia F20.9 PTSD (post-traumatic stress disorder) F43.10
[2020-08-20 09:35] VITALS: BP 99/63; PULSE 92; RESP 17; TEMP 36.9; O2SAT 97
[2020-08-20] MEDS: nicotine 21 mg Patch 1 PATCH TRANSDERMA (11:52)
== END 2020-08-20 12:50 | disposition home or self-care (01) | DRG 885 ==
LOC: ER 14:58 → NP 15:35
PROVIDERS: Admitting Provider Psychiatry & Neurology Psychiatry; Emergency Provider Family Medicine; Visit Provider Psychiatry & Neurology Psychiatry
DX: F20.9 Schizophrenia, unspecified (principal); Z91.128 Patient's intentional underdosing of medication regimen for other reason; F43.10 Post-traumatic stress disorder, unspecified; F63.81 Intermittent explosive disorder
CPT/HCPCS: 36415; 80053; 80306; 80307; 81001; 81025; 85025; 90471; 90686; 93005; 99285; 99291